=== PATIENT | female | born 1960 | race Caucasian/White ===

== ENCOUNTER 2019-08-10 10:00 | Outpatient (RCR) | payer OTHER, SELFPAY ==
--- NOTE | 2019-06-01 10:16 | PTOPEVAL ---
PHYSICAL THERAPY EVALUATION AND PLAN OF CARE 06-01-19 The Physical Therapy evaluation was completed for the diagnosis' of L UE lymphedema and L shoulder adhesive capsulitis. Recommendation for treatment is 2-3 x/week for 4 weeks. Thank you for referring Mrs. Rodas to [facility][Note 3]. Please review, sign, date and return this plan of care [facility]. I agree with and certify that the following plan of care is medically necessary. Referring Physician Date Attending Provider: *PT Outpatient Evaluation Start: 06/01/19 09:09 Document 06/01/19 09:00 MARTY (Rec: 06/01/19 10:15 MARTY [id number]) Therapy Assessment Status Assessment Status Assessment Status Evaluation Outpatient Past Medical History Neurological History Hx Neurological Disorders No Significant History Cardiovascular History Hx Cardiac Disorders No Significant History Respiratory History Hx Other Respiratory Disorders Yes: seasonal allergies Gastrointestinal History Hx Gastrointestinal Disorders No Significant History Genitourinary History Hx Genitourinary Disorders No Significant History Musculoskeletal History Hx Other Musculoskeletal Disorders Yes: L shoulder and elbow pain Hematological History Hx Hematological Disorders No Significant History Endocrine History Hx Endocrine Disorders No Significant History HEENT History Hx Other HEENT Disorders Yes: B hearing aids Integumentary History Hx Skin Disorders No Significant History Evaluation Information Problem Diagnosis L arm lymphedema, shoulder adhesive capsulitis Onset Mar 2019 Prior Level of Function Activity Level (Last 3 Months) Occupation not working; retired Hand Dominance Right Activity of Daily Living Ability Independent Indoor/Home Mobility Independent Community Mobility Independent Stairs Ability Independent Functional Cognition (Planning, Shopping Independent , Taking Medications) Cooking Yes Cleaning Yes Laundry Yes Shopping Yes Driving Yes Home Setting Living Situation Alone Mobility Assistive Devices (Used Last 3 None Months) Comments Additional Prior Level of Function can do all home tasks-- Comments increase time to do and rest due to pain and weakness Pain Assessment Timing of Pain Assessment Timing of Pain Assessment Assessment Pain Scale Pain Scale Used Numeric (1 - 10) Self Report Pain Assessment Left Shoulder(s) Reported Pain Level 1 Pain Description Aching,Stabbing Radicular Pain Location ache at rest- top of GH joint;
--- NOTE | 2019-06-01 11:20 | OTOPEVAL ---
OT INITIAL EVALUATION 06/01/19 Thank you for referring this patient to [facility] [place]. Plan to see Wendy for skilled OT 2x/week for 4 weeks. Please review, sign, date and return this plan of care MICHELL. I agree with and certify that the following plan of care is medically necessary. Referring Physician Date Admitting Provider: Brittany Briones PAC *OT Outpatient Evaluation Outpatient Past Medical History Neurological History Hx Neurological Disorders No Significant History Cardiovascular History Hx Cardiac Disorders No Significant History Respiratory History Hx Other Respiratory Disorders Yes: seasonal allergies Gastrointestinal History Hx Gastrointestinal Disorders No Significant History Genitourinary History Hx Genitourinary Disorders No Significant History Musculoskeletal History Hx Other Musculoskeletal Disorders Yes: L shoulder and elbow pain Hematological History Hx Hematological Disorders No Significant History Endocrine History Hx Endocrine Disorders No Significant History HEENT History Hx Other HEENT Disorders Yes: B hearing aids Integumentary History Hx Skin Disorders No Significant History Evaluation Information Problem Diagnosis Left lateral epicondylitis Onset Mar 2019 Additional Evaluation Detail 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 Subjective Information Wendy reports difficulties Query Text:As Reported By Patient/ with activities that require Family gross gripping and lifting such as carrying a coffee cup, during a doorknob, cooking, cleaning, and being able to use her LUE to wash and dry her hair. She currently has a 10# lifting restriction on her LUE as she is s/p mastectomy with LUE lymphedema. She is being treated for her lymphedema at this clinic also. Pain Assessment Timing of Pain Assessment Timing of Pain Assessment Assessment Pain Scale Pain Scale Used Numeric (1 - 10) Self Report Pain Assessment Left Elbow(s) Reported Pain Level 2 Pain Description Aching Pain Radiation Left Shoulder Pain Frequency Chronic Current Pain Intensity 2 Lowest Pain Intensity 1 Greatest Pain Intensity 10 Pain Aggravating Factors ADL's,Exercise/Activity,
--- NOTE | 2019-06-29 08:49 | PCOTNOTE ---
OCCUPATIONAL THERAPY DISCHARGE NOTE 06/29/2019 Wendy has participated in 3 outpatient OT sessions for treatment of left lateral epicondylitis. 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 She is currently independent with all materials and would like to continue treatment on her own. Plan to discharge today with patient independent with [facility]. Thank you for referring this patient to [facility]. Please review, sign, date and return this discharge note MICHELL. I agree with and certify that the following plan of care is medically necessary. Referring Physician Date Attending Provider: J Luis Desai MD Referring Provider: Brittany Briones PA-C
--- NOTE | 2019-07-04 10:05 | PTOPEVAL ---
PHYSICAL THERAPY REEVALUATION AND UPDATED PLAN OF CARE 07-04-2019 Mrs. Rodas has received 5 Physical Therapy sessions, from June 01 to today. There was a delay in initiation of treatment, due to awaiting insurance authorization and the holidays. She has completed treatment from OT for L elbow lateral epicondylitis. Treatment received: Manual lymph drainage, multilayer compression wraps over L arm, education for self massage, self wrapping, lymphedema management and skin care. And L shoulder exercises and home exercise program. Compared to the initial evaluation: Circumferential measurement of the L arm has decreased by 6.7 cm; less firmness of tissue over anterior forearm; less or no tenderness over anterior forearm, lateral trunk, posterior trunk; there is tenderness over L upper trunk, were she had brest biopsy last week; There continues to be edema over lateral and posterior trunk and inferior to L breast incision with firmness of tissue; her L shoulder active ROM is about the same; she continues to have pain in L shoulder that increases with movement of shoulder; Thank you for referring Wendy to [facility] [place][Note 2]. Please review, sign, date and return this plan of care MICHELL. I agree with and certify that the following plan of care is medically necessary. Referring Physician Date Attending Providers: Dr. Teodoro Frazier, order for L UE lymphedema Brittany Brown PA-C, order for L shoulder adhesive capsulitis *PT Outpatient Re-Evaluation Document 07/04/19 08:50 MARTY (Rec: 07/04/19 09:59 MARTY [email or web address]) Assessment Status Re-evaluation Subjective Information Wendy reports: pleased with Query Text:As Reported By Patient/ the improvement in her arm-- Family much smaller and side of trunk is almost gone; pressure of trunk and chest is gone; had L breast biopsy,x2 last week Pain Assessment Timing of Pain Assessment Timing of Pain Assessment Assessment Pain Scale Pain Scale Used Numeric (1 - 10) Self Report Pain Assessment Left Elbow(s) Reported Pain Level 1 Other Pain Description tender over lateral elbow Left Shoulder(s) Reported Pain Level 0 Other Pain Description no pain in shoulder Other Alleviating Interventions some problems holding items- strength not all way back in arm/shoulder Additional Pain Comments no tightness or pressure in L arm; she is limiting activity due to shoulder- pain 3/10 with exer Pain Score Pain Score 1,0: Self Report Upper Extremity Range of Motion Scapular/ Shoulder Range of Motion Left Shoulder Flexion - Active 110 Shoulder Abduction - Active 90 Shoulder Medial Rotation - Active L palm to post-lateral hip/edge of buttock Query Text:Reach Behind the Back Shoulder Lateral Rotation - Active palm behind ear Query Text:Reach Behind the Head Scapular/Shoulder Range of Motion increase p
--- NOTE | 2019-07-20 10:03 | PTOPEVAL ---
PHYSICAL THERAPY REEVALUATION AND UPDATED PLAN OF CARE 07-20-2019 Ms. Rodas has completed 11 Physical Therapy sessions, from June 01 to today, for the diagnosis of L UE lymphedema and L shoulder adhesive capsulitis. Compared to the last reevaluation: the tissue of her forearm has softened; no longer has tenderness with palpation over forearm or medial humerus; slight increase shoulder flexion and abduction ranges and strength; circumferential measurement of arm has decreased by 2 cm, but during this time frame, it had increased due to redness and irritation of UE, which has now resolved; She continues to have edema over lateral trunk and inferior to incision. She is able to apply the compression wrap to her arm between therapy sessions. Wendy has a good understanding of lymphedema management- is performing her self massage, doing HEP and monitoring her skin. Recommend to continue PT for 2-3x/week for 3 weeks, to complete lymphedema education and recommend compression sleeve and glove for her to obtain. Thank you for referring Wendy to [facility] [place]. Please review, sign, date and return this plan of care MICHELL. I agree with and certify that the following plan of care is medically necessary. Referring Physician Date Attending Provider: Dr. Teodoro Frazier, order for L UE lymphedema Brittany Brown PA-C, order for L shoulder adhesive capsulitis *PT Outpatient Re-Evaluation Document 07/20/19 09:18 MARTY (Rec: 07/20/19 09:48 MARTY [email or web address]) Subjective Information Wendy reports: arm is smaller, Query Text:As Reported By Patient/ fingers still swell; has Family been rewrapping her arm and keeping the wrap on, removing for few hours at most during day; has been doing her arm exercises, but shoulder still hurts; feels sore and tender over the side of her trunk and hurts when arm hits it; is wearing the tight sports bra, which helps; is going to [employer] [facility] to see about getting a better supportive bra; and wants to continue therapy to get arm better. Pain Assessment Pain Scale Pain Scale Used Numeric (1 - 10) Self Report Pain Assessment Left Elbow(s) Reported Pain Level 0 Radicular Pain Location pulls on elbow Left Shoulder(s) Reported Pain Level 2 Pain Description Sharp,Soreness,Tightness Radicular Pain Location anterior shoulder Pain Frequency Chronic Current Pain Intensity 2 Lowest Pain Intensity 2 Greatest Pain Intensity 6 Pain Level Goal 0 Pain Aggravating Factors Exercise/Activity Other Pain Aggravating Factors lift arm too high;
[2019-08-10 09:47] VITALS: BP_SYST 95
--- NOTE | 2019-08-10 10:31 | PTOPEVAL ---
PHYSICAL THERAPY RE-EVALUATION AND UPDATED PLAN OF CARE 08-10-2019 Ms. Rodas has received 16 PT sessions, from June 01 to today. Compared to the last reevaluation: pain rating has decreased slightly at the worst rating; L shoulder AROM is about the same, except abduction decreased slightly; circumferential measurement of her L arm has decreased by 3.3 cm; trunk measurements are the same. Wendy has a good understanding of lymphedema care, self massage, home exercises and compression to trunk and arm/hand. She has ordered, but not yet received her compression sleeve and glove. The sleeve is more compression than she has been using. And is awaiting insurance approval for the intermittent compression pump for home use. Plan for therapy is to continue 0-2x/week for the next 3 weeks, to assure that her new compression sleeve and glove are an appropriate--fit, comfortable and she tolerates, prior to completing therapy care. Thank you for referring Wendy to [facility]. Please review, sign, date and return this plan of care MICHELL. I agree with and certify that the following plan of care is medically necessary. Referring Physician Date Attending Provider: Dr. Teodoro Frazier, order for L UE lymphedema Dr. J Luis Desai, Brittany Briones PA-C, order for L shoulder adhesive capsulitis *PT Outpatient Re-Evaluation Document 08/10/19 09:47 MARTY (Rec: 08/10/19 10:31 MARTY [email or web address]) Subjective Information Wendy reports: have ordered Query Text:As Reported By Patient/ sleeve 30-40 mmHg should be Family here anytime and glove is 20- 30 mmHg and expect anytime; using wraps on arm- doing herself and wearing most nights; Pain Assessment Timing of Pain Assessment Timing of Pain Assessment Assessment Pain Scale Pain Scale Used Numeric (1 - 10) Self Report Pain Assessment Left Elbow(s) Reported Pain Level 1 Pain Frequency Chronic Current Pain Intensity 1 Lowest Pain Intensity 1 Greatest Pain Intensity 4 Pain Level Goal 0 Left Shoulder(s) Reported Pain Level 1 Pain Frequency Chronic Current Pain Intensity 1 Lowest Pain Intensity 1 Greatest Pain Intensity 4 Pain Level Goal 0 Pain Score Pain Score 1,1: Self Report Upper Extremity Range of Motion Scapular/ Shoulder Range of Motion Left Shoulder Flexion - Active 105 Shoulder Flexion - Passive 120 Shoulder Abduction - Active 85 Shoulder Abduction - Passive 95 Shoulder Medial Rotation - Active palm to L SIJ Query Text:Reach Behind the Back Shoulder Lateral Rotation - Active palm to ear Query Text:Reach Behind the Head Scapular/Shoulder Range of Motion all shoulder motions increase Comments shoulder pain--most pain with
--- NOTE | 2019-08-30 16:15 | PCPTNOTE ---
PHYSICAL THERAPY DISCHARGE 08-30-2019 Attending Provider: Dr. Teodoro Frazier Patient:Wenyd Rodas Date of :1960 Ms. Rodas has not returned for any further treatments since the reevaluation dated 08/10/2019. She called and stated she was doing well and did not need to return for therapy; therefore she will be discharged from therapy at this time. Refer to that report for her status at the last session. Thank you for referring Wendy to [facility]. Please review, sign, date and return this discharge summary MICHELL. I have been updated about the patient's current status and I agree with discharge from the above service at this time. Referring Physician Date
== END 2019-08-10 23:59 | disposition home or self-care (01) ==
LOC: ANHPT 10:00
PROVIDERS: PCP Surgery
DX: M75.02 Adhesive capsulitis of left shoulder (principal); M77.12 Lateral epicondylitis, left elbow; M77.02 Medial epicondylitis, left elbow
CPT/HCPCS: 97035; 97110; 97140; 97162; 97165

== ENCOUNTER 2020-10-23 08:31 | Outpatient (RCR) | payer SELFPAY | END 2020-10-23 23:59 | disposition home or self-care (01) | LOC: ANHAUDIO 08:31 | PROVIDERS: PCP Surgery; Visit Provider Surgery | DX: Z46.1 Encounter for fitting and adjustment of hearing aid (principal) | CPT/HCPCS: 99199 ==